=== PATIENT | female | born 1980 | race Caucasian/White ===

== ENCOUNTER 2020-12-17 13:07 | Day surgery (SDC) | payer OTHER ==
[~2020-12-17] VITALS: Ht 172.7 cm; Wt 63.6 kg
[~2020-12-17 13:07] MED LIST: VITAMIN D31250 MCG PO
--- NOTE | 2020-12-17 14:02 | NUR ---
LAB DRAWN FOR HCG LABS SAYS 12 TILL DONE.
--- NOTE | 2020-12-17 15:22 | NUR ---
12/17/20 Arielle2 Renee Leon 1518- PT ARRIVES TO PACU AROUSABLE TO VERBAL STIMULI. PT FALLS TO SLEEP WHEN NOT BEING TALKED TO. RESP EVEN AND UNLABORED. OXYGEN SAT HIGH 90'S TO 100% ON 3L VIA NC.
--- NOTE | 2020-12-18 12:17 | OR ---
[facility] [address] [place], [place] [address] Signed DATE OF OPERATION: 12/17/2020 SURGEON: Curly Garcia MD PREOPERATIVE DIAGNOSES: 1. Family history of colon cancer (mother age 43). 2. History of polyp in 2016 ([place]). POSTOPERATIVE DIAGNOSIS: Diminutive polyp of rectum x2. PROCEDURE: Total colonoscopy to the cecum with cold morcellation polypectomy x2. ANESTHESIA: Intravenous sedation, fentanyl 200 mcg and Versed 8 mg. INDICATION: This 40-year-old white woman is a patient of BRYAN Thomason and is noted to have a family history of colon cancer in her mother at age 43. She underwent colonoscopy in 2016 in [place] at which point, she was found to have a small polyp she says. She has also had symptoms suggestive of biliary disease and a gallbladder ultrasound was performed under my direction on December 15, 2020, which was normal. She is admitted at this time to undergo surveillance colonoscopy based on her family history. She has no symptoms of bleeding, diarrhea, or constipation. She understands the risk of bleeding, infection, and perforation related to colonoscopy and wished to proceed. FINDINGS: The prep was quite excellent. Complete colonoscopy was undertaken of the cecum without question. Passage through the colon was somewhat challenging as she seems not to have much fixation of her colon at all. She had no evidence of diverticulosis or colitis or stricture. She did have two diminutive polyps of the rectum, which were excised. DESCRIPTION OF PROCEDURE: The patient was brought to the endoscopy suite and placed in the lateral decubitus position, given intravenous sedation to the point of slurred speech and nystagmus. Digital rectal examination was normal. An Olympus video colonoscope was passed in the rectum and manipulated throughout the Electronically Signed By: CURLY GARCIA MD 12/18/20 1217 PATIENT NAME: CHRISTINA RAND OPERATIVE REPORT DATE OF : 76 REPORT #: [id number] PHYSICIAN: CURLY GARCIA MD PCP: JAZZY WHITT NP REPORT IS CONFIDENTIAL AND NOT TO BE RELEASED WITHOUT AUTHORIZATION [facility] [address] [place], [place] [address] Signed colon. Passage beyond the splenic flexure and subsequently the hepatic flexure was challenging on the basis of redundancy of the colon and lack of fixation most likely. Ultimately, a supine position was helpful in advancing the colonoscope ultimately to the cecum. The ileocecal valve and appendiceal orifice were clearly identified and normal. The scope was withdrawn from that point and examination throughout showed no sign of abnormality into the rectum on retroflexed view, which showed two diminutive polyps of the rectum, both excised with cold morcellation technique. The scope was straightened, withdrawn and removed and the patient was taken to the recovery room in good condition. CONCLUDING DIAGNOSIS: Diminutive polyps of the rectum. PLAN: Recommend repeat colonoscopy in 5 years, sooner if clinically indicated. She will return to the ongoing care of BRYAN Thomason. MD MIGUEL Friedman/ISIS /[id number] cc: BRYAN Thomason Copies: ~ Electronically Signed By: CURLY GARCIA MD 12/18/20 1217 PATIENT NAME: CHRISTINA RAND OPERATIVE REPORT DATE OF : 76 REPORT #: [id number] PHYSICIAN: CURLY GARCIA MD PCP: JAZZY WHITT NP REPORT IS CONFIDENTIAL AND NOT TO BE RELEASED WITHOUT AUTHORIZATION
--- NOTE | 2020-12-25 09:23 | PATH ---
[facility] [address] [facility] [place] [address] Signed SPECIMEN(S): A RECTAL POLYP SPECIMEN SOURCE: A. RECTAL POLYP - CLINICAL HISTORY: History of polyp. Postop: Diminutive polyp of rectum. MICROSCOPIC DESCRIPTION: Histologic sections of all submitted blocks are examined by light microscopy. These findings, together with the gross examination, support the pathologic diagnosis. FINAL PATHOLOGIC DIAGNOSIS: Rectum, polypectomy: - Benign colonic mucosa with prominent intramucosal lymphoid aggregate. - No evidence of neoplasia. COMMENT: Sections of colonic tissue demonstrate a benign intramucosal lymphoid aggregate. Intramucosal lymphoid aggregates can sometimes appear as polyps endoscopically. They have no clinical significance. There is no evidence of dysplasia or malignancy. TWK:caw:C2NR GROSS DESCRIPTION: The specimen, labeled "ME, rectal polyp," is received in formalin and consists of one concepcion soft tissue fragment that measures 0.2 cm in greatest dimension. The specimen is entirely submitted in cassette (A1). JS (under the direct supervision of a pathologist) The Gross Description was prepared using a voice recognition system. The report was reviewed for accuracy; however, sound-alike word errors, addition and/or deletions may occur. If there is any question about this report, please contact Client Services. PERFORMING LABORATORY: The technical component was performed by [facility], [address] [place] [id number] (Youth Coordinator: Clover Disla MD; CLIA# [id number]). The professional interpretation was performed by [facility], [facility], [address] [place] PATIENT NAME: CHRISTINA RAND PATHOLOGY DATE OF : 76 REPORT #: [id number] PHYSICIAN: HOWIE PATHOLOGY PCP: JAZZY WHITT NP REPORT IS CONFIDENTIAL AND NOT TO BE RELEASED WITHOUT AUTHORIZATION [facility] [address] [place] [address] [place] [address] Signed [id number]. Diagnostician: Hernán Lizarraga MD Pathologist Electronically Signed 12/25/2020 Copies: ~ PATIENT NAME: CHRISTINA RAND PATHOLOGY DATE OF : 76 REPORT #: [id number] PHYSICIAN: HOWIE PATHOLOGY PCP: JAZZY WHITT NP REPORT IS CONFIDENTIAL AND NOT TO BE RELEASED WITHOUT AUTHORIZATION
== END 2020-12-17 16:18 | disposition home or self-care (01) ==
LOC: OPS 13:07 → DS 14:15 → OPS 16:18
PROVIDERS: ATTEND Surgery
PROC: 0DBP8ZZ Excision of Rectum, Via Natural or Artificial Opening Endoscopic (ICD-10-PCS; principal; 2020-12-17 14:15)
DX: K62.1 Rectal polyp (principal); Q43.8 Other specified congenital malformations of intestine; R14.0 Abdominal distension (gaseous); Z86.010 Personal history of colon polyps; Z80.0 Family history of malignant neoplasm of digestive organs; Z91.030 Bee allergy status
CPT/HCPCS: 84703; 88305; 99153; G0500; J2250; J3010; J7121

== ENCOUNTER 2023-09-11 16:11 | Emergency (ER) | payer OTHER ==
[~2023-09-11] VITALS: Ht 172.7 cm; Wt 74.1 kg
[~2023-09-11 16:11] MED LIST changes: +BENADRYL25 MG PO; +ROBITUSSIN COU237 M3 PO
[2023-09-11] MEDS ORDERED: ALPRAZolam 0.5 MG TAB PO ONE (17:15)
[2023-09-11 17:19] LABS: BASOPHILS 0.8 % (0-2); EOSINOPHILS 4.6 % (0-6); HEMATOCRIT 39.2 % (35.0-50.0); HEMOGLOBIN 13.1 g/dL (12.0-18.0); LYMPHOCYTES 24.1 % (24-44); MCH 32.1 (27-36); MCHC 33.5 g/dl (30-36); MCV 95.9 fl (81-99); MONOCYTES 11.2 % (0-12); NEUTROPHILS 59.3 % (39-80); PLATELET COUNT 294 K/uL (140-440); RBC 4.09 M/ul (4.3-5.7); RDW 12.4 (10.5-15.0)
[2023-09-11 17:34] LABS: ALBUMIN 3.7 g/dL (3.4-5.0); ALBUMIN/GLOBULIN RATIO 1.19 (1.1-2.4); ANION GAP 11.6 (7-21); BILIRUBIN, TOTAL 0.5 ng/dL (0.2-1.0); BUN/CREATININE RATIO 14.86 (6.0-28.6); CALCIUM 8.6 mg/dL (8.5-10.1); CREATININE, SERUM 0.74 mg/dL (0.55-1.02); MAGNESIUM 2.2 mg/dL (1.8-2.4); POTASSIUM 3.6 mmol/L (3.5-5.1); PROTEIN, TOTAL 6.8 g/dL (6.4-8.2)
[2023-09-11 19:05] VITALS: BP 118/73
== END 2023-09-11 19:07 | disposition home or self-care (01) ==
LOC: ED 16:11
PROVIDERS: Emergency Medicine
DX: R59.0 Localized enlarged lymph nodes (principal); R91.8 Other nonspecific abnormal finding of lung field; Z88.1 Allergy status to other antibiotic agents; Z79.899 Other long term (current) drug therapy
CPT/HCPCS: 36415; 71260; 74177; 80053; 83735; 84703; 85025; Q9967